=== PATIENT | female | born 1995 | race Caucasian/White ===

== ENCOUNTER 2018-08-21 02:30 | Outpatient (CLI) | payer MEDICAID, SELFPAY ==
[2018-08-21 12:33] LABS: ALT 51 U/L (12-78); AST 29 U/L (15-37); Albumin 4.2 g/dL (3.4-5.0); Alkaline Phosphatase 84 U/L (46-116); Anion Gap 9.2 mmol/L (3-11); BUN 14 mg/dL (7-18); Bilirubin, Total 0.8 mg/dL (0.2-1.0); CO2 27.8 mmol/L (21.0-32.0); Calcium 9.5 mg/dL (8.5-10.1); Chloride 105 mmol/L (98-107); Cholesterol 154 mg/dL (50-200); Glucose 91 mg/dL (70-100); HDL Cholesterol 35 mg/dL (40-60); LDL CHOLESTEROL 110 mg/dL (<100); Potassium 4.7 mmol/L (3.5-5.1); Sodium 142 mmol/L (136-145); Total Protein 7.2 g/dL (6.4-8.2); Triglyceride 60 mg/dL (30-150)
== END 2018-08-21 02:50 ==
DX: R63.8 Other symptoms and signs concerning food and fluid intake (principal); Z13.220 Encounter for screening for lipoid disorders
CPT/HCPCS: 36415; 80053; 80061; 83721

== ENCOUNTER 2018-11-24 13:46 | Outpatient (REF) | payer MEDICAID, SELFPAY ==
--- NOTE | 2018-11-24 13:29 | SKI_PTH ---
PATIENT: Ermelinda Diaz LOC: [facility] U#:[id number] AGE/SX: 23/F ROOM: RE11/24/[address]: Vicente Alexis DO : 1995 BED: DIS: 11/24/2018 SPEC #: [id number] RECD: 11/24/18 18:16 STATUS: REKHA REQ #: [id number] JASPER: 11/24/18 13:[address]: Vicente Alexis DEPT: Surgical Specimen RECD BY: Barbara Fernández ENTERED: 11/24/18 18:16 SP TYPE: PAU SETH DR: Rayna Mendez APRN Tissues: 1 - SKIN BIOPSY(SHAVE/PUNCH) Procedures: SKIN LEVEL 4 Comments: [id number]
== END 2018-11-24 14:06 ==
LOC: LBN 13:46
PROVIDERS: Visit Provider Otolaryngology Otolaryngology/Facial Plastic Surgery
DX: L28.1 Prurigo nodularis (principal); L90.5 Scar conditions and fibrosis of skin
CPT/HCPCS: 88305

== ENCOUNTER 2020-02-03 12:05 | Emergency (ER) | payer MEDICAID, SELFPAY ==
[2020-02-03 12:09] VITALS: BP 142/79; PULSE 93; RESP 16; TEMP 36.7; O2SAT 98
--- NOTE | 2020-02-03 12:56 | ED.GENADUL_ITS ---
Discharge Plan Disposition Patient Disposition: HOME Condition: Stable Discharge Details Chief Complaint: Nk/Back Pain Clinical Impression: Sciatica of right side Primary Care Provider: Rayna Mendez ED Provider: Maria M Hernandez Home Meds and New Rx's Prescriptions: New methocarbamol 500 mg tablet 500 mg PO Q6H PRN (Reason: muscle spasm) Qty: 14 RF: 0 prednisone 20 mg tablet See Rx Instructions .ROUTE .COMPLEX Qty: 12 RF: 0 naproxen [Naprosyn] 500 mg tablet 500 mg PO BID PRN (Reason: pain) Qty: 14 RF: 0 No Action No Known Home Meds RF: 0 Discharge Instructions Instructions: Sciatica (ED) Additional Instructions: Drink plenty of fluids and get plenty of rest. Alternate tylenol and ibuprofen as needed and directed for pain. You were also given a prescription for naproxen which you can use in place of the ibuprofen. Do not take naproxen and ibuprofen together. Take the steroids until finished. Take the methocarbamol (muscle relaxer) as needed and directed for pain. Follow-up with your primary care doctor in 1 week. Return to the emergency department with any worsening or new concerning symptoms. Discharge Data Discharge Date/Time-TO BE ENTERED AT DEPARTURE: 02/03/20 13:21 Discharge Physician: Maria M Hernandez Medical Decision Making 24yo F with R sided lower back pain w/ radiation to her R leg for the past 1 week. No fever, urinary or cauda equina symptoms. test negative. She appears uncomfortable. She has right lumbar paraspinal and right buttock tenderness. No focal deficits. test negative. Presentation most likely consistent with sciatica. Also consider muscle strain or less likely disc herniation. History and presentation not consistent with cauda equina syndrome. Patient drove herself to the ED. Will give an IM Toradol and p.o. prednisone and send home with NSAIDs, prednisone and muscle relaxers. Advised to alternate ice and heat. Advised to follow up with the primary care doctor for re-evaluation. Usual and customary return precautions given prior to discharge. Medical Records Medical records reviewed: Yes I reviewed the patient's medical records. HPI General Mode of arrival: ambulatory . Date/Time Provider Initiated Documentation: 02/03/20 12:20 . Limitations to Documentation: no limitations . Information obtained by: patient . HPI Narrative: Patient is a 24-year-old female who presents with right-sided lower back pain radiating into her right buttock and down her right leg. She admits to intermittent tingling in her right leg but denies any weakness or numbness. She denies fever, urinary symptoms, bowel or bladder incontinence, saddle anesthesia, abdominal pain. She had been alternating Tylenol and Motrin, but states the last doses were 1 week ago as they were not helping. 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 Related Data Home Medications Medication Instructions Recorded Confirmed Unknown [No Known Home Meds] 10/06/19 02/03/20 methocarbamol 500 mg PO Q6H PRN #14 tab 02/03/20 naproxen [Naprosyn] 500 mg PO BID PRN #14 tab 02/03/20 prednisone See Rx Instructions .ROUTE 02/03/20 .COMPLEX #12 tab Previous Rx's Medication Instructions Recorded methocarbamol 500 mg PO Q6H PRN #14 tab 02/03/20 naproxen [Naprosyn] 500 mg PO BID PRN #14 tab 02/03/20 prednisone See Rx Instructions .ROUTE 02/03/20 .COMPLEX #12 tab Allergies Allergy/AdvReac Type Severity Reaction Status Date / Time No Known Allergies Allergy Verified 10/06/19 11:11 General Stated Complaint: Nk/Back Pain STEFFI: 4 Review of Systems All systems reviewed & are unremarkable except as noted in HPI and below Constitutional Constitutional: Reports as per HPI, Denies chills and Denies fever(s) Eyes Eyes: Denies blurry vision ENT Ears, Nose, Mouth, and Throat: Denies dizziness, Denies sore throat and Denies throat swelling Cardiovascular Cardiovascular: Denies chest pain and Denies dyspnea Respiratory Respiratory: Denies cough and Denies dyspnea Gastrointestinal Gastrointestinal: Denies abdominal pain, Denies diarrhea and Denies vomiting Genitourinary Genitourinary: Denies hematuria and Denies dysuria Musculoskeletal Musculoskeletal: Reports back pain and Denies numbness Integumentary/Breasts Skin/Breast: Denies lesions and Denies rash Neurologic Neurologic: Denies dizziness, Denies localized weakness and Denies numbness Allergic/Immunologic Allergic/Immunologic: Denies throat swelling [facility] Social History Smoking/Tobacco Use Status: Never Alcohol Intake: current Alcohol Intake frequency: a few times a month Drug use: Never Substance use type: does not use Caregiver/Support person: No Household members: children Housing: house Pets and animals: Yes Pets and animals: cat(s) and horse(s) Sexually active: Yes Do you think of yourself as: straight/heterosexual Current gender identity: female What is your relationship status?: never How often do you talk on the phone with friends or family?: three or more times per week How often do you get together with friends or relatives?: decline to answer How often do you attend religious or orthodoxy services?: 1-3 times per year Do you belong to any clubs or organized social groups?: no Panel score (0-1 are the most socially isolated patients): 1 What type of physical activity do you participate in: decline to answer Duration: decline to answer Frequency: decline to answer Spring/Amish: Taoism Special spring needs: No Female Reproductive History Menstrual Age of Menarche: 12 Duration of menses: 3-5 days control method: none History History 1 Para Hx # Term Pregnancies Multiple births Hx # Pregnancies Ectopic pregnancies AB induced Hx Number of Living Children AB spontaneous Exam Const General: cooperative, healthy appearing and no acute distress HENMT Head: normal to inspection Face and sinus: normal facial exam Eyes General: appearance normal, both eyes and all related structures EOM: EOM intact bilaterally Neck Neck: normal visual inspection and No submandibular swelling Lymphatic: no lymphadenopathy noted Chest Chest: normal inspection of the chest and no tenderness Resp Effort & Inspection: normal respiratory effort and able to speak in complete sentences Auscultation: clear to auscultation bilaterally Cardio Rate: regular rate Rhythm: regular rhythm GI Inspection: normal to inspection Palpation: soft, not firm, not rigid and nontender Auscultation: normal bowel sounds Back/Spine/Pelvis Thoracic/Lumbar Spine: thoracic and lumbar spine normal to inspection, pain with thoraco-lumbar ROM, paraspinal tenderness (R lumbar paraspinal region), No thoracic spinal tenderness and No lumbar spinal tenderness Pelvis: no pain with anterior-posterior compression and buttock tenderness on the right Sacrum: no ecchymosis, no erythema, no swelling and no tenderness Skin General skin exam: no rashes or lesions noted Neuro General: patient alert, patient awake and patient oriented x3 Cognition: normal cognition Speech: speech normal Motor: muscle tone normal throughout Sensory Exam: no sensory deficits noted Extrem General: normal to inspection, full ROM, capillary refill normal, no calf tenderness bilaterally and no edema Right lower extremity: foot Details: vascular exam Details: dorsalis pedis pulse present and posterior tibial pulse present Left lower extremity: foot Details: vascular exam Details: dorsalis pedis pulse present and posterior tibial pulse present Psych Appearance: grossly normal Mental Status: mental status grossly normal Speech and Movement: speech and movement normal Affect: normal affect Course Vital Signs Vital signs: Vital Signs Temperature 98.1 F 02/03/20 12:09 Pulse 93 H 02/03/20 12:09 Respiratory Rate 16 02/03/20 12:09 Blood Pressure 142/79 H 02/03/20 12:09 Pulse Oximetry 98 02/03/20 12:09 Temperature 98.1 F 02/03/20 12:09 Temperature Source Skin 02/03/20 12:09 Pulse 93 H 02/03/20 12:09 Respiratory Rate 16 02/03/20 12:09 Respiratory Effort Non-Labored 02/03/20 12:09 Blood Pressure 142/79 H 02/03/20 12:09 Blood Pressure Position Sitting 02/03/20 12:09 Pulse Oximetry 98 02/03/20 12:09 Oxygen Delivery Method Room Air 02/03/20 12:09 Oxygen Flow Rate 0 02/03/20 12:09 Pain Level 9 02/03/20 12:12 Lab/Test Results Lab/Test Results: POC- Test(urine) Negative
[2020-02-03] MEDS: Ketorolac 60 MG/2 ML VIAL IM (13:13)
[2020-02-03] MEDS: predniSONE 20 MG TAB 60 MG PO (13:14)
[2020-02-03 13:17] VITALS: BP 129/83; PULSE 81; TEMP 36.7; O2SAT 98
== END 2020-02-03 13:21 | disposition home or self-care (01) ==
PROVIDERS: Emergency Provider Physician Assistant
DX: M54.31 Sciatica, right side (principal); R20.2 Paresthesia of skin
CPT/HCPCS: 81025; 96372; 99284; J1885; J7512

== ENCOUNTER 2020-03-22 01:34 | Outpatient (CLI) | payer MEDICAID, SELFPAY ==
[2020-03-22 12:46] LABS: ALT 47 U/L (14-59); AST 24 U/L (15-37); Albumin 4.2 g/dL (3.4-5.0); Alkaline Phosphatase 72 U/L (46-116); Anion Gap 8.9 mmol/L (3-11); BUN 13 mg/dL (7-18); Bilirubin, Total 0.9 mg/dL (0.2-1.0); CO2 26.1 mmol/L (21.0-32.0); CREATININE 0.78 mg/dL (0.55-1.02); Calcium 9.3 mg/dL (8.5-10.1); Chloride 106 mmol/L (98-107); Glucose 85 mg/dL (74-106); Potassium 4.2 mmol/L (3.5-5.1); Sodium 141 mmol/L (136-145); Total Protein 6.9 g/dL (6.4-8.2)
== END 2020-03-22 01:54 ==
DX: Z00.00 Encounter for general adult medical examination without abnormal findings (principal)
CPT/HCPCS: 36415; 80053

== ENCOUNTER 2021-01-13 12:50 | Outpatient (REF) | payer MEDICAID, SELFPAY ==
--- NOTE | 2021-01-13 11:30 | PAPFT_PTH ---
PATIENT: Ermelinda Diaz LOC: [facility] U#:[id number] AGE/SX: 25/F ROOM: RE01/13/[address]: GILBERT Bean : 1995 BED: DIS: 01/13/2021 SPEC #: [id number] RECD: 01/13/21 17:49 STATUS: REKHA MALDONADO #: [id number] JASPER: 01/13/21 11:[address]: Rosa Isela Azevedo DEPT: [facility] Cytology RECD BY: Barbara Fernández ENTERED: 01/13/21 17:50 SP TYPE: PAPFT DORINDA DR: Rayna Mendez APRN Tissues: 1 - CX/ENDOCX FOR PAP SMEARS Procedures: PAP THIN PREP/[facility] Screening Comments: [id number]
[2021-01-16 15:20] LABS: Chlamydia Result Negative (Negative); GC Result Negative (Negative)
== END 2021-01-13 12:51 | disposition home or self-care (01) ==
LOC: LBN 12:50
PROVIDERS: Visit Provider Nurse Practitioner Family
DX: Z11.3 Encounter for screening for infections with a predominantly sexual mode of transmission (principal); Z12.4 Encounter for screening for malignant neoplasm of cervix
CPT/HCPCS: 87491; 87591; 88142

== ENCOUNTER 2021-02-09 03:57 | Outpatient (CLI) | payer MEDICAID, SELFPAY ==
[2021-02-09 09:34] LABS: Abs Immature Grans 0.02 10^3/uL (0.0-0.06); Absolute Basophil Count 0.04 10^3/uL (0.0-0.2); Absolute Eosinophil Count 0.13 10^3/uL (0.0-0.7); Absolute Lymphocyte Count 2.08 10^3/uL (1.2-3.4); Absolute Monocyte Count 0.38 10^3/uL (0.1-0.8); Absolute Neutrophil Count 4.14 10^3/uL (1.2-6.7); Basophils % 0.6; Eosinophils % 1.9; HCT 45.1 % (36.0-46.0); HGB 14.9 g/dL (11.2-15.7); Immature Grans % 0.3; Lymphocytes % 30.6; MCH 28.4 pg (27.0-33.0); MCV 86.1 fL (80-95); MPV 10.5 fL (8.0-11.0); Monocytes % 5.6; Nucleated RBC 0 %; Platelet Count 288 10^3/uL (130-400); RBC 5.24 10^6/uL (3.93-5.22); RDW 12.2 % (11.7-14.6); RDW-SD 38.8 fL; WBC 6.79 10^3/uL (4.4-10.8)
[2021-02-09 09:49] LABS: Hemoglobin A1C 5.1 % (<5.7)
[2021-02-09 10:53] LABS: ALT 39 U/L (14-59); AST 21 U/L (15-37); Albumin 4.2 g/dL (3.4-5.0); Alkaline Phosphatase 81 U/L (46-116); Anion Gap 9.6 mmol/L (3-11); BUN 17 mg/dL (7-18); Bilirubin, Total 0.8 mg/dL (0.2-1.0); CO2 26.4 mmol/L (21.0-32.0); CREATININE 0.9 mg/dL (0.55-1.02); Calcium 9.1 mg/dL (8.5-10.1); Calculated LDL 118 mg/dL (<100); Chloride 105 mmol/L (98-107); Cholesterol 168 mg/dL (<200); Ferritin 99 ng/mL (8-252); Folate 6.4 ng/mL (8.6-20.0); Glucose 103 mg/dL (74-106); HDL Cholesterol 35 mg/dL (40-60); Magnesium 2.1 mg/dL (1.8-2.4); Potassium 4.3 mmol/L (3.5-5.1); Sodium 141 mmol/L (136-145); Total Protein 7.1 g/dL (6.4-8.2); Triglyceride 75 mg/dL (<150); Vitamin B12 234 pg/mL (193-986)
[2021-02-10 09:25] LABS: Homocysteine 12.6 umol/L (5.0-13.9)
[2021-02-10 15:26] LABS: Lipoprotein (a) 14 mg/dL (<=30)
[2021-02-13 14:25] LABS: IgA 104 mg/dL (85-499); Interpretation (See Note); Tissue Transglutaminase IgA <1.2 U/mL (<4.0)
== END 2021-02-09 03:58 | disposition home or self-care (01) ==
LOC: LBO 03:57
PROVIDERS: PCP Naturopath; Visit Provider Naturopath
DX: R19.7 Diarrhea, unspecified (principal); E78.5 Hyperlipidemia, unspecified; N94.6 Dysmenorrhea, unspecified; M62.830 Muscle spasm of back
CPT/HCPCS: 36415; 80053; 80061; 82784; 83090; 83516; 83695; 82607; 82728; 82746; 83036; 83735; 85025

== ENCOUNTER 2021-05-12 02:05 | Outpatient (CLI) | payer MEDICAID, SELFPAY ==
[2021-05-12 13:11] LABS: ALT 32 U/L (14-59); AST 18 U/L (15-37); Albumin 4.2 g/dL (3.4-5.0); Alkaline Phosphatase 79 U/L (46-116); Anion Gap 7.5 mmol/L (3-11); BUN 17 mg/dL (7-18); Bilirubin, Total 0.6 mg/dL (0.2-1.0); CO2 28.5 mmol/L (21.0-32.0); CREATININE 0.8 mg/dL (0.55-1.02); Calcium 9.8 mg/dL (8.5-10.1); Chloride 105 mmol/L (98-107); Glucose 84 mg/dL (74-106); Sodium 141 mmol/L (136-145); Total Protein 7.3 g/dL (6.4-8.2)
[2021-05-12 13:27] LABS: Calculated LDL 123 mg/dL (<100); Cholesterol 172 mg/dL (<200); HDL Cholesterol 37 mg/dL (40-60); Triglyceride 62 mg/dL (<150)
[2021-05-12 13:32] LABS: Folate > 20.0 ng/mL (8.6-20.0)
[2021-05-15 02:20] LABS: Vitamin D 25 Total 20.8 ng/mL (30-100)
== END 2021-05-12 02:06 | disposition home or self-care (01) ==
LOC: LOS 02:05
PROVIDERS: Visit Provider Naturopath
DX: E55.9 Vitamin D deficiency, unspecified (principal); E53.8 Deficiency of other specified B group vitamins; E78.5 Hyperlipidemia, unspecified; Z00.00 Encounter for general adult medical examination without abnormal findings
CPT/HCPCS: 36415; 80053; 80061; 82306; 82746

== ENCOUNTER 2021-07-04 09:07 | Outpatient (CLI) | payer MEDICAID, SELFPAY ==
[2021-07-04 12:53] LABS: Calculated LDL 131 mg/dL (<100); Cholesterol 176 mg/dL (<200); HDL Cholesterol 34 mg/dL (40-60); Triglyceride 56 mg/dL (<150)
[2021-07-05 11:24] LABS: Insulin 12.3 uIU/mL (<29.0)
== END 2021-07-04 09:08 | disposition home or self-care (01) ==
LOC: LOS 09:08
PROVIDERS: Visit Provider Naturopath
DX: E78.5 Hyperlipidemia, unspecified (principal)
CPT/HCPCS: 36415; 80061; 83525